=== PATIENT | female | born 1945 | race Hispanic/Latino ===

== ENCOUNTER 2020-10-02 12:24 | Emergency (ER) | payer MEDICARE, OTHER ==
[~2020-10-02] VITALS: Ht 160 cm; Wt 89.8 kg
== END 2020-10-02 14:50 | disposition home or self-care (01) ==
LOC: ER 13:06
DX: S00.83XA Contusion of other part of head, initial encounter (principal); M25.562 Pain in left knee; M25.561 Pain in right knee; W01.198A Fall on same level from slipping, tripping and stumbling with subsequent striking against other object, initial encounter; Y92.000 Kitchen of unspecified non-institutional (private) residence as the place of occurrence of the external cause; I10 Essential (primary) hypertension; E78.5 Hyperlipidemia, unspecified; K21.9 Gastro-esophageal reflux disease without esophagitis
CPT/HCPCS: 70450; 99283

== ENCOUNTER 2021-05-05 07:47 | Observation (INO) | payer MEDICARE, OTHER ==
[2021-05-01 13:38] LABS: BASOPHILS # (AUTO) 0.1 (0.0-0.1); BASOPHILS % 0.6 % (0.0-1.0); EOSINOPHILS # (AUTO) 0.4 (0.0-0.4); EOSINOPHILS % 3.7 % (0.0-6.0); HEMATOCRIT 37.7 % (34.2-44.1); HEMOGLOBIN 11.9 g/dL (12.0-16.0); LYMPHOCYTES # (AUTO) 2.3 (1.0-3.2); LYMPHOCYTES % 20.4 % (18.0-39.1); MEAN CORPUSCULAR HEMOGLOBIN 28.9 pg (28-32); MEAN CORPUSCULAR HGB CONC 31.6 g/dL (31-35); MEAN CORPUSCULAR VOLUME 91.5 fL (81-99); MONOCYTES # (AUTO) 0.9 (0.2-0.8); MONOCYTES % 8.1 % (4.4-11.3); NEUTROPHILS # (AUTO) 7.3 (2.1-6.9); NEUTROPHILS % 66.6 % (38.7-80.0); PLATELET COUNT 350 x10e3/uL (140-360); RED BLOOD COUNT 4.12 x10e6/uL (3.6-5.1); RED CELL DISTRIBUTION WIDTH 13.2 % (11.7-14.4)
[~2021-05-05] VITALS: Ht 160 cm; Wt 91.6 kg
[~2021-05-05 07:47] MED LIST: ASPIRIN81 MG PO; IBUPROFEN200 MG PO; LOSARTAN POTASS25 MG PO; PANTOPRAZOLE SO40 MG PO
[2021-05-05] MEDS ORDERED: ROPIVACAINE 246.25 MG, EPINEPHRINE HCL 1:1000 1ML 0.5 MG, CLONIDINE HCL 0.08 MG, KETORO... INJ ONE ×5 (08:00)
[2021-05-05] MEDS ORDERED: DEXAMETHASONE SOD PHOS 10 MG/1 ML VIAL ONE (08:06)
[2021-05-05] MEDS ORDERED: CELECOXIB 200 MG CAP ONE (08:06)
[2021-05-05] MEDS ORDERED: GABAPENTIN 300 MG CAP ONE (08:07)
[2021-05-05] MEDS ORDERED: SODIUM CHLORIDE 0.9% 50ML 100 ML ONE (08:07)
[2021-05-05] MEDS ORDERED: Vancomycin IV 1,000 MG ONE (08:36)
[2021-05-05] MEDS ORDERED: TRANEXAMIC ACID 1,000 MG/10 ML ML ONE (08:36)
[2021-05-05] MEDS ORDERED: SODIUM CHLORIDE 0.9% 500ML 500 ML ONE (08:36)
[2021-05-05] MEDS ORDERED: HYDROCODONE/APAP 5MG-325MG TAB PO PRN (12:00)
[2021-05-05] MEDS ORDERED: ONDANSETRON HCL INJ 2MG/ML 2ML 2 MG/ML VIAL IV PRN (12:00)
[2021-05-05] MEDS ORDERED: DIPHENHYDRAMINE HCL INJ 50 MG/ML VIAL IV PRN (12:00)
[2021-05-05] MEDS ORDERED: ACETAMINOPHEN 650 MG SUPP PR PRN (12:00)
[2021-05-05] MEDS ORDERED: DOCUSATE SODIUM 100 MG CAP PO PRN (12:00)
[2021-05-05] MEDS ORDERED: KETOROLAC TROMETHAMINE 30 MG/ML VIAL IV PRN (12:00)
[2021-05-05] MEDS ORDERED: MIDAZOLAM HCL 2 MG/2 ML VIAL ONE (13:26)
[2021-05-05] MEDS ORDERED: FENTANYL CITRATE/PF 100MCG/2 ML INJ ONE (13:26)
[2021-05-05] MEDS ORDERED: SEVOFLURANE INHAL SOLN 250 ML PEN BTL ONE (13:51)
[2021-05-05] MEDS ORDERED: POVIDONE IODINE 0.05% 0.05 % ML PO ONE (13:51)
[2021-05-05] MEDS ORDERED: PROPOFOL IV EMULSION 10 MG/ML 20 ML VIAL ONE (13:51)
[2021-05-05] MEDS ORDERED: LIDOCAINE HCL 2% LOCAL INJ 5 ML SDV VIAL INJ ONE (13:51)
[2021-05-05] MEDS ORDERED: ONDANSETRON HCL INJ 2MG/ML 2ML 2 MG/ML VIAL ONE (13:51)
[2021-05-05] MEDS ORDERED: LIDOCAINE 2%/ EPINEPHRINE 20ML MDV ONE (13:54)
[2021-05-05] MEDS ORDERED: ROPIVACAINE 0.5% 5 MG/ML 30 ML SDV ONE (13:54)
[2021-05-05 14:23] VITALS: BP 118/58
[2021-05-05 14:30] VITALS: BP 118/58
[2021-05-05] MEDS: SODIUM CHLORIDE 0.9% 1000ML 1,000 ML IV SCH ×2 (16:00→22:23)
[2021-05-05 16:09] VITALS: BP 108/51
[2021-05-05] MEDS ORDERED: ACETAMINOPHEN 1000 MG/100 ML IV PRN (17:00)
[2021-05-05] MEDS: CELECOXIB 100 MG CAP PO SCH (18:07)
[2021-05-05] MEDS: Cefazolin 1 GM in SODIUM CHLORIDE 0.9% 50ML 50 ML IV SCH (18:07)
[2021-05-05] MEDS: ASPIRIN 325 MG TAB PO SCH (18:07)
[2021-05-05 19:44] VITALS: BP 107/56
[2021-05-05] MEDS: GUAIFENESIN/DEXTROMETHORPHAN LIQD 5 ML UDC PO PRN (20:53)
[2021-05-05 21:00] VITALS: BP 107/56
[2021-05-05] MEDS ORDERED: ZOLPIDEM TARTRATE 5 MG TAB PO PRN (21:00)
[2021-05-06 00:49] VITALS: BP 111/57
[2021-05-06] MEDS: Cefazolin 1 GM in SODIUM CHLORIDE 0.9% 50ML 50 ML IV SCH ×2 (02:13→09:14)
[2021-05-06] MEDS: GUAIFENESIN/DEXTROMETHORPHAN LIQD 5 ML UDC PO PRN (02:16)
[2021-05-06] MEDS: HYDROCODONE/APAP 7.5MG-325MG 1 EA TAB PO PRN ×2 (04:26→10:59)
[2021-05-06] MEDS ORDERED: PANTOPRAZOLE SOD 40 MG TABEC PO SCH ×2 (04:45→07:30)
[2021-05-06] MEDS ORDERED: BENZONATATE 100 MG CAP PO PRN (05:00)
[2021-05-06 05:16] VITALS: BP 107/60
[2021-05-06 05:49] LABS: HEMATOCRIT 31.5 % (34.2-44.1); HEMOGLOBIN 10.4 g/dL (12.0-16.0)
[2021-05-06 07:46] VITALS: BP 107/60
[2021-05-06 08:00] VITALS: BP 94/56
[2021-05-06] MEDS ORDERED: LOSARTAN POTASSIUM 25 MG TAB PO SCH (09:00)
[2021-05-06] MEDS: SODIUM CHLORIDE 0.9% 1000ML 1,000 ML IV SCH (09:14)
[2021-05-06] MEDS: CELECOXIB 100 MG CAP PO SCH (09:14)
[2021-05-06] MEDS: ASPIRIN 325 MG TAB PO SCH (09:14)
[2021-05-06 11:39] VITALS: BP 102/45
[2021-05-06] MEDS ORDERED: ONDANSETRON HCL 4 MG ORAL DISINTEGRATING TAB PO PRN (13:00)
[2021-05-06] MEDS ORDERED: CELECOXIB 200 MG CAP PO SCH (17:00)
== END 2021-05-06 12:54 | disposition home or self-care (01) ==
LOC: OR 07:47 → PACU V 11:46 → MED/SURG 14:51
PROVIDERS: ADMIT Specialist; ATTEND Specialist
DX: M17.12 Unilateral primary osteoarthritis, left knee (principal); Z01.818 Encounter for other preprocedural examination; I10 Essential (primary) hypertension; D64.9 Anemia, unspecified; K21.9 Gastro-esophageal reflux disease without esophagitis
CPT/HCPCS: 27447; 36415 ×2; 71046; 73560; 85014; 85018; 85025; 86850; 86900; 86920; 93005; 97116 ×2; 97161; 97530; C1713 ×3; C1776; G0378 ×2; J0171; J0690 ×2; J1100; J1885; J2001 ×2; J2250; J2405; J2704; J2795; J3010; J3370; J7030 ×2; J7040; S0164